=== PATIENT | male | born 1995 | race Hispanic/Latino ===

== ENCOUNTER 2019-04-01 15:24 | Emergency (ER) | payer BC ==
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
--- NOTE | 2019-04-01 16:33 | CT ---
CT CHEST WITH CONTRAST: INDICATIONS: Fall with injury to chest. TECHNIQUE: Multiple axial tomograms obtained through the chest with IV enhancement. Trauma protocol is followed . FINDINGS: The lungs are well aerated and clear. There is no evidence of pneumothorax. There is no evidence of effusion or infiltrate. The mediastinum is unremarkable. The thoracic aorta is unremarkable. The osseous structures appear intact. IMPRESSION: No acute injury identified. Findings related to Dr. Jacobo. CODE CR POS: [facility]
== END 2019-04-01 16:44 | disposition home or self-care (01) ==
LOC: ERS 15:24
DX: S20.211A Contusion of right front wall of thorax, initial encounter (principal); V80.010A Animal-rider injured by fall from or being thrown from horse in noncollision accident, initial encounter
CPT/HCPCS: 70450; 71045; 71260; 72125; G0390

== ENCOUNTER 2020-09-12 18:11 | Observation (INO) | payer BC ==
[2020-09-12] MEDS ORDERED: Sodium Chloride 0.9% 30 ML ONE ×2 (18:37→19:47)
[2020-09-12] MEDS ORDERED: Midazolam HCl 2 mg/2 ml Vial ONE (18:41)
[2020-09-12] MEDS ORDERED: Fentanyl 100 MCG/2 ML VIAL ONE ×2 (18:41→22:55)
[2020-09-12] MEDS ORDERED: Gentamicin 80 MG/2 ML VIAL ONE (19:02)
[2020-09-12] MEDS ORDERED: Bacitracin Zinc Ointment 30 gm TUBE ONE (19:47)
[2020-09-12] MEDS ORDERED: Bupivacaine PF 0.5% 30 ML VIAL ONE (19:47)
[2020-09-12] MEDS ORDERED: Promethazine HCl 25 MG/ML VIAL SLOW IVP PRN (22:01)
[2020-09-12] MEDS ORDERED: Ondansetron HCl/PF 4 MG/2 ML Vial IVP PRN (22:01)
[2020-09-12] MEDS ORDERED: HYDROmorphone 2 MG/ML VIAL SLOW IVP PRN (22:01)
[2020-09-12] MEDS ORDERED: Promethazine HCl 25 MG/ML VIAL IM PRN (22:01)
[2020-09-12] MEDS ORDERED: Acetaminophen 325 MG TAB PO PRN (22:34)
[2020-09-12] MEDS ORDERED: Milk Of Magnesia 30 ML UDCUP PO PRN (22:34)
[2020-09-12] MEDS ORDERED: Morphine 4 MG/ML VIAL SLOW IVP PRN (22:34)
[2020-09-12] MEDS ORDERED: HYDROcodone/Acetaminophen 5/325 mg Tablet PO PRN (22:34)
[2020-09-12] MEDS ORDERED: Bisacodyl 10 MG SUPP PR PRN (22:34)
[2020-09-12] MEDS ORDERED: Meperidine HCl/PF 25 MG/ML VIAL IM PRN (22:43)
[2020-09-12] MEDS ORDERED: TETANUS AND DIPHTHERIA TOX/PF 0.5 ML DISP.SYRIN IM SCH (22:45)
[2020-09-12] MEDS ORDERED: Communication Order-Pharmacy FS PRN (22:45)
[2020-09-12] MEDS ORDERED: Ketorolac Tromethamine 30 MG/ML VIAL IVP SCH (23:59)
[2020-09-13 00:22] VITALS: BMI 21.5
[2020-09-13] MEDS: HYDROcodone/Acetaminophen 10/325 mg Tablet PO PRN ×2 (00:55→08:46)
[2020-09-13] MEDS: Vancomycin 1 GM in Premix Bag 1 BAG IVPB SCH ×2 (00:55→08:39)
[2020-09-13] MEDS: Ketorolac Tromethamine 30 MG/ML VIAL IVP SCH ×2 (04:09→09:54)
[2020-09-13] MEDS ORDERED: Aspirin 81 mg Enteric Coated Tablet PO SCH (09:00)
[2020-09-13] MEDS ORDERED: Vancomycin HCl 1.75 GM in Sodium Chloride 0.9% 500 ML IVPB SCH (09:00)
[2020-09-13 12:29] VITALS: BP 109/65; TEMP 98.8
[2020-09-14] MEDS ORDERED: Ketorolac Tromethamine 30 MG/ML VIAL IVP PRN (06:00)
--- NOTE | 2020-09-14 15:07 | OP ---
DATE OF PROCEDURE: 09/13/2020 PREOPERATIVE DIAGNOSES: 1. Right small finger open fracture metacarpal neck, markedly displaced angulated injury with laceration. 2. Right small finger wound, 2.0 cm, zone 3 extensor tendon laceration. 3. Right ring finger wound with zone 3 extensor tendon laceration. 4. Right middle finger wound 2 cm with zone 3 extensor tendon laceration. All the finger lacerations were partial. COMPLICATIONS: None. TOURNIQUET TIME: 58 minutes. ESTIMATED BLOOD LOSS: 20 mL. DESCRIPTION OF PROCEDURE: There was no contamination seen after inspection and followed by debridement using excisional technique with tenotomy scissors, retractors, Josef barrera, and there was no evidence of operative intervention, so we proceeded with after prep and drape, we gave him 25 mL of 0.5% Marcaine block at metacarpophalangeal joint level as well as proximal for the superficial ulnar nerve. We exsanguinated the limb, inflated tourniquet to 250 mmHg pressure. Then, we took each of the what appeared to be benign puncture wounds of the index, long, ring finger and extended the incisions by 1 cm distal, 1 cm proximal. Pankaj, we noticed damage to the underlying structures deep. This was seen also at the other sites. Once we had used debridement with irrigation, tenotomy scissors, [place] blade, and 11 blade knife, we were able to ascertain the depth of each incision, finished debridement, irrigated with 5 L normal saline under Pulsavac pressure and then we released the tourniquet, able to visualize bleeding, so we held for 2 minutes the compression technique to eliminate bleeding. Once this was done, we then had the patient prepared for final fracture debridement and wound debridement. There was a small puncture wound where there was bleeding from the fracture bed, we believe this made it a grade 1 fracture, even though there was moderate comminution and angulation of the metacarpal neck fracture. The patient had the wound debrided with a curette along with the fracture site, placed retractors and we finished our debridement of the overall success of the procedure at this point. Then, we finished all debridements of the material associated with open fracture, the index finger wound, middle finger wound, and the long finger wounds. Job ID: [id number]
== END 2020-09-13 14:14 | disposition home or self-care (01) ==
LOC: SDC 18:11 → SURG A 22:34
PROVIDERS: ADMIT Orthopaedic Surgery Hand Surgery; ATTEND Orthopaedic Surgery Hand Surgery
PROC: 0PBP0ZZ Excision of Right Metacarpal, Open Approach (ICD-10-PCS; principal; 2020-09-13)
DX: S62.336A Displaced fracture of neck of fifth metacarpal bone, right hand, initial encounter for closed fracture (principal); S66.326A Laceration of extensor muscle, fascia and tendon of right little finger at wrist and hand level, initial encounter; S66.322A Laceration of extensor muscle, fascia and tendon of right middle finger at wrist and hand level, initial encounter; S66.324A Laceration of extensor muscle, fascia and tendon of right ring finger at wrist and hand level, initial encounter; I10 Essential (primary) hypertension; E78.00 Pure hypercholesterolemia, unspecified
CPT/HCPCS: 96374; 96375; 96376; G0378; J1580; J1885; J2250; J2270; J3010; J3370; J3490; S0020